=== PATIENT | female | born 1990 | race Caucasian/White ===

== ENCOUNTER 2016-07-09 03:23 | Inpatient (IN) | payer OTHER ==
--- NOTE | ~2016-07-09 | HP ---
Unit #: [id number] #: [id number] Patient: TASHA DOE [id number] [place] [address] [id number] I MR#: [id number] NAME: TASHA DOE. ROOM: P208 Age: 26 Sex: F Admission Date: 07/09/2016 : 1990 Attending Physician: Oli Castro M.D. Admitting Physician: Oli Castro M.D. Primary Care Physician: Estela Kapoor HISTORY AND PHYSICAL HISTORY OF PRESENT ILLNESS Tasha is a 26-year-old female admitted on 07/09/[address] [place] [address] for detox from heroin, Xanax and alcohol. She also reports suicidal ideation. During the exam she was unable to answer questions appropriately. Therefore, all information is taken from her records. PAST MEDICAL HISTORY 1. Asthma. 2. Hepatitis C. 3. History of withdrawal seizures. PAST SURGICAL HISTORY 1. Cholecystectomy. 2. section. ALLERGIES Penicillin and meloxicam. SOCIAL HISTORY Smokes 1 pack of cigarettes daily. Daily alcohol use and daily use of heroin, Xanax and amphetamines. She is currently and homeless. FAMILY HISTORY Noncontributory. REVIEW OF SYSTEMS CONSTITUTIONAL: No fever or chills. HEENT: Denies any sore throat, ear pain or runny nose. CARDIOVASCULAR: Denies chest pain, irregular heart rhythm or palpitations. CHEST: Denies shortness of breath or cough. No hemoptysis. GASTROINTESTINAL: Denies nausea, vomiting, diarrhea or chronic constipation. ENDOCRINE: Denies history of increased thirst or urination. No recent significant weight loss or gain. GENITOURINARY: Denies dysuria, frequency, or hematuria. SKIN: Denies any rashes. HEMATOLOGIC: Denies history of increased bleeding or bruising. MUSCULOSKELETAL: Denies any hot, swollen joints. No generalized muscle pain. NEUROLOGIC: Denies problems with vision or speech. No frequent, severe headaches. No numbness, tingling or weakness in any extremities. Denies loss of bladder or bowel control. Unit #: [id number] #: [id number] Patient: TASHA DOE CURRENT MEDICATIONS None. PHYSICAL EXAMINATION GENERAL: Alert, oriented, in no acute distress. VITAL SIGNS: Blood pressure 140/90, heart rate 92, temperature 97.8. HEIGHT: 5 feet 1. WEIGHT: 151 pounds. SKIN: Warm and dry without rash or lesion. HEENT: Normocephalic. TMs not viewed. Oral and nasal passages clear. Conjunctivae clear. PERRLA. EOMs intact. NECK: Supple without lymphadenopathy or thyromegaly. HEART: Regular rate and rhythm without murmur. LUNGS: Clear. ABDOMEN: Soft, nontender, without masses or hepatosplenomegaly. : Not done. EXTREMITIES: No evidence of cyanosis, clubbing or edema. Moves all without focal deficit. NEUROLOGICAL: Grossly within normal limits. Cranial Nerves: II: Visual miller are intact. III, IV AND : Extraocular movements are intact. Pupils are equal, round and reactive to light. V: Facial sensation is grossly normal. VII: Facial movements and expression are normal. VIII: Auditory acuity grossly intact. IX, X: Uvula is midline. Phonation is normal. XI: Patient shrugs shoulders and turns head normally. XII: Tongue protrudes in the midline. Sensory and Motor Function: Sensory and motor sensation is grossly normal. Motor: moves all extremities well. Coordination: Gait is normal. Deep Tendon Reflexes: Intact. IMPRESSION 1. Psychiatric admission. 2. Asthma. 3. Hepatitis C. 4. Withdrawal seizures. RECOMMENDATIONS PSYCHIATRIC: Per psychiatrist. MEDICAL: No contraindications to participate in facility's activities. MEDICAL PROGNOSIS Good. MEDICAL CONDITION Stable. Dictated by... Mel Santos/kasey TD: 07/09/2016 19:14 JOB #: [id number] Unit #: [id number] #: [id number] Patient: TASHA DOE HISTORY AND PHYSICAL X KATHY ALEX APRN HISTORY AND PHYSICAL
--- NOTE | ~2016-07-09 | PA ---
Unit #: [id number] #: [id number] Patient: PRINCE DOE [id number] [place] [address] [id number] I MR#: [id number] NAME: PRINCE DOE. ROOM: P208 Age: 26 Sex: F Admission Date: 07/09/2016 : 1990 Date of Assessment: 07/09/2016 Attending Physician: Oli Castro M.D. Admitting Physician: Oli Castro M.D. Primary Care Physician: Estela Kapoor PSYCHIATRIC ASSESSMENT IDENTIFYING INFORMATION The patient is a 26-year-old white female admitted to the [address] [place] [address] with suicidal ideation with plan to overdose on heroin. INFORMANT(S) Chart, patient could not be aroused for interview. CHIEF COMPLAINT None given. HISTORY OF PRESENT ILLNESS The patient is a 26-year-old white female last admitted to this facility in March 2016. She is readmitted reporting recurrent abuse of heroin, Xanax and alcohol. The patient had reported suicidal ideation with plan to overdose on heroin. She had also reported that she is drinking 6 cans of malt liquor on a daily basis. She is currently homeless and has lost custody of her children. For a more complete history of present, please refer to previous dictated notes. PAST PSYCHIATRIC HISTORY Reviewed, no changes. FAMILY HISTORY/SOCIAL HISTORY Reviewed, no changes. MEDICAL HISTORY Reviewed, no changes. MEDICATION HISTORY None. ALLERGIES Penicillin, meloxicam. MENTAL STATUS EXAM At this time, reveals the patient to be a soundly sleeping female. Multiple attempts to arouse her are unsuccessful. ASSETS AND LIABILITIES Patient's assets to be assessed. Liabilities, lack of resources, homelessness, lack of investment in treatment. ADMITTING DIAGNOSES Unit #: [id number] #: [id number] Patient: PRINCE DOE 1. Alcohol use disorder. 2. Sedative/hypnotic use disorder. 3. Opioid use disorder. 4. Dysthymic disorder. 5. Hepatitis C. PSYCHIATRIC PLAN/TREATMENT GOALS The patient remains hospitalized for safety and stabilization. Routine detoxification protocol to cover alcohol, opioids and benzodiazepines have been initiated. Suicide precautions are in place. The patient will participate in appropriate arriaza and milieu activities. ESTIMATED LENGTH OF STAY Three to five days with followup to take place through the auspices of community mental health resources. The patient's previous stay at the hospital was significant for her lack of investment in maintenance of sobriety. Dictated by... Oli Castro M.D. VALENTIN/kasey TD: 07/09/2016 12:13 JOB #: [id number] PSYCHIATRIC ASSESSMENT X Oli Castro MD X PSYCHIATRIC ASSESSMENT
--- NOTE | ~2016-07-09 | PN ---
Unit #: [id number] #: [id number] Patient: PRINCE DOE [id number] [facility] [address] [place] [address] [id number] Anastasiia MR#: [id number] NAME: PRINCE DOE ROOM: P208 Age: 26 Sex: F Admission Date: 07/09/2016 : 1990 Attending Physician: Oli Castro M.D. Admitting Physician: Oli Castro M.D. Primary Care Physician: Estela FRANCO PROGRESS NOTES DATE 07/10/2016 DISCUSSION The patient continues to exhibit significant discomfort related to opioid withdrawal. I have spoken to the patient regarding availing herself of p.r.n. medications for her symptoms of withdrawal. She is [facility]. Dictated by... Oli Castro M.D. CB/farnaz TD: 07/10/2016 15:10 JOB #: [id number] [facility] PROGRESS NOTES X Oli Castro MD PROGRESS NOTE
--- NOTE | ~2016-07-09 | DS ---
Unit #: [id number] #: [id number] Patient: PRINCE DOE [id number] [place] [address] [id number] I MR#: [id number] NAME: PRINCE DOE. ROOM: P208 Age: 26 Sex: F Admission Date: 07/09/2016 : 1990 Discharge Date: 07/11/2016 Attending Physician: Oli Castro M.D. Primary Care Physician: Estela Kapoor DISCHARGE SUMMARY REASON FOR ADMISSION The patient is a 26-year-old single white female, admitted to the [address] [place] [address] unit with a history of abuse of opioids and sedative hypnotics as well as alcohol. HOSPITAL COURSE The patient was admitted to the [address] [place] [address] unit and placed on routine detoxification protocol to cover all substances of abuse including alcohol, opioids, and Xanax. The patient remained seclusive to room with little if any participation within the therapeutic milieu. She did initially request referral to [facility], but on 07/11/2016, requested discharge. It was suspicion of this physician that the patient and her boyfriend who was also in the hospital were planning to get together following discharge to continue using drugs and the patient was gently confronted regarding this following discharge. FINAL DIAGNOSES Alcohol use disorder, sedative hypnotic use disorder, opioid use disorder, hepatitis C, antisocial personality disorder. DISPOSITION ON DISCHARGE The patient is discharged on no psychotropic or other medications. Given the circumstances of discharge, no psychiatric followup is arranged. PROGNOSIS The patient's prognosis is thus considered guarded. Dictated by... Oli Castro M.D. CB/valentin TD: 07/12/2016 01:41 JOB #: [id number] Unit #: [id number] #: [id number] Patient: PRINCE DOE DISCHARGE SUMMARY X Oli Castro MD X DISCHARGE SUMMARY
[~2016-07-09 03:23] MED LIST: KEFLEX500 MG PO; NO MEDICATIONS; PERMETHRIN60 GM TP
[2016-07-10 11:35] LABS: URINE APPEARANCE CLEAR; URINE BILIRUBIN NEG (NEG); URINE BLOOD TRACE (NEG); URINE COLOR YELLOW; URINE GLUCOSE NEG (NEG); URINE KETONE NEG (NEG); URINE LEUKOCYTE ESTERASE NEG (NEG); URINE NITRATE NEG (NEG); URINE PH 7.5 (5-8); URINE PROTEIN NEG (NEG); URINE SPECIFIC GRAVITY 1.008 (1.003-1.035); URINE UROBILINOGEN 0.2 MG/DL (NEG)
[2016-07-10 11:42] LABS: URBCS1 AUWI 0-2 /[HPF] (0-2); URINE BACTERIA AUWI NEG (NEGATIVE); URINE SQUAMOUS EPITHELIAL CELL NONE SEEN /[HPF]; UWBCS1 AUWI 0-2 (0-5)
[2016-07-10 11:54] LABS: AMPHETAMINE NEG (NEG); BARBITURATES NEG (NEG); BENZODIAZEPINES NEG (NEG); COCAINE NEG (NEG); MARIJUANA NEG (NEG); OPIATES NEG (NEG); TRICYCLIC ANTIDEPRESSANTS NEG (NEG); U METHADONE NEG (NEG)
== END 2016-07-11 16:13 | DRG 897 ==
LOC: P2S 03:23 → POF 07-11 13:58 → P2S 07-11 14:05
PROVIDERS: Specialist
DX: F10.20 Alcohol dependence, uncomplicated (principal); F11.20 Opioid dependence, uncomplicated; F13.20 Sedative, hypnotic or anxiolytic dependence, uncomplicated; F34.1 Dysthymic disorder; Z88.0 Allergy status to penicillin; Z88.8 Allergy status to other drugs, medicaments and biological substances; Z59.0 Homelessness; F60.2 Antisocial personality disorder
CPT/HCPCS: 80307; 81003

== ENCOUNTER 2016-08-01 04:43 | Inpatient (IN) | payer OTHER ==
--- NOTE | ~2016-08-01 | PN ---
Unit #: [id number] #: [id number] Patient: PRINCE DOE [id number] [facility] [address] [place] [address] [id number] MR#: [id number] NAME: PRINCE DOE. ROOM: P212 Age: 26 Sex: F Admission Date: 08/01/2016 : 1990 Attending Physician: Oli Castro M.D. Admitting Physician: Oli Castro M.D. Primary Care Physician: Estela Kapoor [facility] PROGRESS NOTES Attending physician Dr. Oli Castro, Dr. Carmelo Benitez covering for. DATE OF PROGRESS NOTE 08/02/2016 SUBJECTIVE UPDATE This is a 26-year-old, white female who is in the hospital with polysubstance withdrawal and dependency issues as well as dysphoria. Patient is continuing to be isolative to her room, poorly (1) with staff and peers. Continues to be dismissive of efforts to help arrange with outpatient care in a very contrite and irritable manner. She continues to ask frequently for PRNs for detox symptoms. She is currently scoring around an 8 with a blood pressure of 138/86 with a pulse of 66 and respiratory rate of 16. Patient was poorly cooperative with me during the interview process beyond acknowledging her name and then immediately would (2) back over and ignoring the rest of the interview. MENTAL STATUS EXAMINATION This is a poorly groomed, disheveled, white female seen in her hospital bed. Poor cooperation and responsiveness. Speech was nonverbal. Mood was irritable and dismissive with a blunted affect. Thought process and content were unable to be fully evaluated. No reports of SI from staff. Memory was unable to be evaluated. She is alert and oriented to time and self at the very least. Association was not able to be evaluated. Cognitive functioning was unable to be evaluated. Insight and judgement seems to be poor. RECOMMENDATIONS Will continue patient admission for safety and stabilization for ongoing detox issues and mood problems. Will continue to encourage proper cooperation with both peers and staff as well as with groups and activities. Patient will be monitored closely with likely disposition soon if progress is continued. Dictated by... Carmelo Benitez M.D. Terese TD: 08/03/2016 12:56 Unit #: [id number] #: [id number] Patient: PRINCE DOE Enrique JOB #: [id number] [facility] PROGRESS NOTES Page 1 of 1 X Carmelo Benitez MD PROGRESS NOTE
--- NOTE | ~2016-08-01 | PA ---
Unit #: [id number] #: [id number] Patient: PRINCE DOE [id number] [facility] [address] [place] [address] [id number] I MR#: [id number] NAME: PRINCE DOE. ROOM: P212 Age: 26 Sex: F Admission Date: 08/01/2016 : 1990 Date of Assessment: 08/01/2016 Attending Physician: Oli Castro M.D. Admitting Physician: Oli Castro M.D. Primary Care Physician: Estela Kapoor PSYCHIATRIC ASSESSMENT IDENTIFYING INFORMATION The patient is a 26-year-old single white female admitted to the [address] [place] [address] with a history of polysubstance dependence and suicidal ideation. INFORMANT(S) Chart, patient could not be aroused for interview. CHIEF COMPLAINT None given HISTORY OF PRESENT ILLNESS The patient is a 26-year-old single white female admitted to the [address] [place] [address] after she had presented to this facility reporting positive suicidal ideation with a plan to overdose on heroin. The patient reports that she has abusing heroin, Xanax, meth and alcohol. The patient reports ____ stressors including loss of custody of her children. She is currently living with an uncle who she states is sober. She had previously been homeless. She was last hospitalized at this facility in March of 2016 but maintains sobriety for no significant period of time thereafter. For more complete history of present of illness please refer to previous dictated notes. PAST PSYCHIATRIC HISTORY Reviewed no changes. PAST MEDICAL HISTORY Reviewed no changes. MEDICATIONS None. ALLERGIES Penicillin, meloxicam. FAMILY HISTORY Reviewed no changes. SOCIAL HISTORY Reviewed no changes. MENTAL STATUS EXAMINATION At this time reveals the patient to be a soundly sleeping white female who cannot be aroused for interview in spite of multiple efforts to do so. Unit #: [id number] #: [id number] Patient: PRINCE DOE ASSETS AND LIABILITIES ASSETS: To be assessed. LIABILITIES: Lack of resources. DIAGNOSTIC IMPRESSION Alcohol use disorder, methamphetamine use disorder, opioid use disorder, sedative hypnotic use disorder, dysthymic disorder and desocial personality disorder, hepatitis C. TREATMENT PLAN The patient remains hospitalized for safety and stabilization. A routine detoxification protocol for opioids as well as sedative hypnotics and alcohol have been initiated. The patient is on suicide precautions. ESTIMATED LENGTH OF STAY Three to five days with followup to take place through the auspices of community mental health resources. Dictated by... Oli Castro M.D. CB/thierno TD: 08/01/2016 20:49 JOB #: [id number] PSYCHIATRIC ASSESSMENT Page 1 of 1 X Oli Castro MD X PSYCHIATRIC ASSESSMENT
--- NOTE | ~2016-08-01 | HP ---
Unit #: [id number] #: [id number] Patient: TASHA DOE [id number] [place] [address] [id number] I MR#: [id number] NAME: TASHA DOE ROOM: P212 Age: 26 Sex: F Admission Date: 08/01/2016 : 1990 Attending Physician: Oli Castro M.D. Admitting Physician: Oli Castro M.D. Primary Care Physician: Estela Kapoor HISTORY AND PHYSICAL HISTORY OF PRESENT ILLNESS Tasha is a 26 year old admitted to [address] [place] [address] because of her continued polysubstance abuse. The patient was seen and H and P dated 07/09/2016 was reviewed. This is current. No changes. Please see H and P dated 07/09/2016. Dictated by... Nyla Galvan P.A.-C. for Camilo Torres/thierno TD: 08/02/2016 00:05 JOB #: [id number] HISTORY AND PHYSICAL Page 1 of 1 X Nyla Galvan HISTORY AND PHYSICAL
--- NOTE | ~2016-08-01 | DS ---
Unit #: [id number] #: [id number] Patient: PRINCE DOE [id number] [place] [address] [id number] I MR#: [id number] NAME: PRINCE DOE. ROOM: P212 Age: 26 Sex: F Admission Date: 08/01/2016 : 1990 Discharge Date: 08/03/2016 Attending Physician: Oli Castro M.D. Primary Care Physician: Estela Kapoor DISCHARGE SUMMARY LOCATION [facility] [address], room number 212, bed number one. REASON FOR ADMISSION Polysubstance dependency and suicidal ideation. PERTINENT LABORATORY DATA Unfortunately, the patient refused to cooperate with blood work. However, they were able to get a urine tox on her that was positive for opiates. A urinalysis that showed 2+ leukocyte esterase, 2+ urobilinogen, 3+ blood, 5 to 10 WBCs. No leukocytes. No nitrites. No other tests were completed because of the patient's lack of cooperation. HOSPITAL COURSE The patient was admitted for safety stabilization for primarily detox issues with secondary mood problems. The patient was less than cooperative with ambulation on the unit as well as socialization with groups and activities. The patient was fairly isolated to herself. Many times when staff and physicians would try to see the patient, she would simply either ignore them or asked to be left alone. The patient was apparently verbally abusive toward [facility] when they tried to intervene for assistance for aftercare. Over the course of hospitalization, the patient asked for medications frequently. There was some concern for malingering but, regardless on the , the patient reported feeling better, denied any SI or HI and was asking for discharge. She was aware of resources available to her and they will be provided by [facility] should she chose to follow up with them. Other than that, she requested no additional assistance. The patient was no longer having any suicidal ideation and most likely had not since admission. Detox symptoms were improved. It was felt the patient was appropriate for discharge. DISCHARGE DIAGNOSES 1. Alcohol dependency. 2. Opiate dependency. 3. Stimulant dependency. 4. Sedative hypnotic dependency. 5. Likely substance induced mood disorder. DISCHARGE INSTRUCTIONS Follow up with [facility] to be provided by [facility]. DISCHARGE MEDICATIONS Unit #: [id number] #: [id number] Patient: PRINCE DOE None. CONDITION AT DISCHARGE Improved. PROGNOSIS Limited, guarded, given the patient's unclear motivations. DIET Regular. ACTIVITY As tolerated. Sobriety encouraged. Dictated by... Camilo Cr TD: 08/03/2016 08:59 JOB #: [id number] DISCHARGE SUMMARY Page 1 of 1 X Carmelo Benitez MD X DISCHARGE SUMMARY
[2016-08-01 09:47] LABS: URINE APPEARANCE CLOUDY; URINE BILIRUBIN NEG (NEG); URINE BLOOD 3+ (NEG); URINE COLOR YELLOW; URINE GLUCOSE NEG (NEG); URINE KETONE NEG (NEG); URINE LEUKOCYTE ESTERASE 2+ (NEG); URINE NITRATE NEG (NEG); URINE PROTEIN NEG (NEG); URINE SPECIFIC GRAVITY 1.011 (1.003-1.035); URINE UROBILINOGEN 0.2 MG/DL (NEG)
[2016-08-01 09:53] LABS: URINE BACTERIA AUWI 1+ (NEGATIVE); URINE SQUAMOUS EPITHELIAL CELL OCC /[HPF]
[2016-08-01 10:23] LABS: AMPHETAMINE NEG (NEG); BARBITURATES NEG (NEG); BENZODIAZEPINES NEG (NEG); COCAINE NEG (NEG); MARIJUANA NEG (NEG); OPIATES POS (NEG); TRICYCLIC ANTIDEPRESSANTS NEG (NEG); U METHADONE NEG (NEG)
== END 2016-08-03 10:25 | disposition home or self-care (01) | DRG 897 ==
LOC: P2S 04:43
PROVIDERS: Specialist
PROC: HZ2ZZZZ Detoxification Services for Substance Abuse Treatment (ICD-10-PCS; principal; 2016-08-01)
DX: F10.20 Alcohol dependence, uncomplicated (principal); F11.20 Opioid dependence, uncomplicated; F13.20 Sedative, hypnotic or anxiolytic dependence, uncomplicated; F15.20 Other stimulant dependence, uncomplicated; F19.24 Other psychoactive substance dependence with psychoactive substance-induced mood disorder
CPT/HCPCS: 80307; 81003

== ENCOUNTER 2016-09-15 21:32 | Inpatient (IN) | payer OTHER ==
--- NOTE | ~2016-09-15 | PA ---
Unit #: [id number] #: [id number] Patient: PRINCE DOE [id number] [place] [address] [id number] I MR#: [id number] NAME: PRINCE DOE. ROOM: P180 Age: 26 Sex: F Admission Date: 09/15/2016 : 1990 Date of Assessment: 09/16/2016 Attending Physician: Oli Castro M.D. Admitting Physician: Oli Castro M.D. Primary Care Physician: Estela Kapoor PSYCHIATRIC ASSESSMENT IDENTIFYING INFORMATION The patient is a 26-year-old white female admitted with suicidal ideation and recurrent abuse of benzodiazepines, alcohol and heroin. INFORMANT(S) Chart, patient could not be aroused for interview. CHIEF COMPLAINT None given. HISTORY OF PRESENT ILLNESS The patient is a 26-year-old white female last discharged from this facility in early July of this year. She has a history of polysubstance dependence as well as hepatitis C. She reports a history of 6 to 7 previous suicide attempts by means of overdose and was reporting positive suicidal ideation when admitted yesterday. The patient states that she has been using intravenous heroin as well as alcohol and illicitly obtained benzodiazepines. When seen today, the patient is sleeping soundly and multiple attempts to arouse her are unsuccessful. For a more complete history of present illness, please refer to previous dictated notes. PAST PSYCHIATRIC HISTORY Reviewed, no changes. FAMILY HISTORY Reviewed, no changes. SOCIAL HISTORY Reviewed, no changes. MEDICAL HISTORY Reviewed, no changes. MEDICATION HISTORY Albuterol. ALLERGIES Penicillin, meloxicam. MENTAL STATUS EXAM At this time, reveals the patient to be a soundly sleeping white female appearing her stated age. She is in no apparent physical distress at time of the examination but cannot be aroused for interview in spite of Unit #: [id number] #: [id number] Patient: PRINCE DOE multiple attempts on the part of this physician to do so. ASSETS AND LIABILITIES Patient's assets to be assessed. Liabilities, poor compliance with treatment, ongoing substance use. ADMITTING DIAGNOSES 1. Opioid use disorder. 2. Alcohol use disorder. 3. Sedative/hypnotic use disorder. 4. Dysthymic disorder. 5. Hepatitis C. PSYCHIATRIC PLAN/TREATMENT GOALS The patient remains hospitalized for safety and stabilization. Routine detoxification protocol to cover sedative/hypnotics, alcohol as well as opioids has been initiated. The patient will participate in appropriate arriaza and milieu activities. ESTIMATED LENGTH OF STAY Five to seven days. Dictated by... Oli Castro M.D. CB/kasey TD: 09/16/2016 16:12 JOB #: [id number] PSYCHIATRIC ASSESSMENT Page 1 of 1 X Oli Castro MD X PSYCHIATRIC ASSESSMENT
--- NOTE | ~2016-09-15 | PN ---
Unit #: [id number] #: [id number] Patient: PRINCE DOE [id number] [facility] [address] [place] [address] [id number] I MR#: [id number] NAME: PRINCE DOE ROOM: P180 Age: 26 Sex: F Admission Date: 09/15/2016 : 1990 Attending Physician: Oli Castro M.D. Admitting Physician: Oli Castro M.D. Primary Care Physician: Estela FRANCO PROGRESS NOTES DATE 09/17/2016 DISCUSSION The patient states that she slept somewhat better with initiation of Melatonin last evening. She continues to complain of significant symptoms of opioid withdrawal but denies suicidal ideation. She was requesting residential chemical dependence treatment following discharge, and I will ask her high school social science teacher to see her regarding this. Dictated by... Oli Castro M.D. CB/tanya TD: 09/17/2016 12:22 JOB #: [id number] [facility] PROGRESS NOTES Page 1 of 1 X Oli Castro MD PROGRESS NOTE
--- NOTE | ~2016-09-15 | CO ---
Unit #: [id number] #: [id number] Patient: TASHA DOE [id number] [place] [address] [id number] I MR#: [id number] NAME: TASHA DOE ROOM: P180 Age: 26 Sex: F Admission Date: 09/15/2016 : 1990 Attending Physician: Oli Castro M.D. Primary Care Physician: Estela Kapoor Requesting Physician: Oli Castro M.D. Consultation Date: 09/17/2016 CONSULTATION REPORT HISTORY OF PRESENT ILLNESS Tasha had an abnormal UA on 09/16/2016 that showed one plus leucocytes, five to ten white blood cells and one plus bacteria. During evaluation Tasha was extremely agitated and refusing to answer any questions about her house. She reports that she does state that she is not having any problems and even if she did she wouldn't care and would not want it treated. PHYSICAL EXAM Actually refused a physical exam. ASSESSMENT AND PLAN Abnormal UA. It is likely that this abnormal UA (1) due to external bacterial that contaminated the urine sample. Tasha is extremely agitated and unwilling to be cooperative. At this time she does not appear to be in any distress and does not appear to be ill. She is denying any complaints so at this time we will just repeat a UA please notify if abnormal. Dictated by... Therese Fernández A.P.R.N. for Megan TD: 09/18/2016 23:53 JOB #: [id number] CONSULTATION REPORT Page 1 of 1 X THERESE ALEX APRN CONSULTATION REPORT
--- NOTE | ~2016-09-15 | HP ---
Unit #: [id number] #: [id number] Patient: PRINCE DOE [id number] [facility] [address] [place] [address] [id number] MR#: [id number] NAME: PRINCE DOE. ROOM: P180 Age: 26 Sex: F Admission Date: 09/15/2016 : 1990 Attending Physician: Oli Castro M.D. Admitting Physician: Oli Castro M.D. Primary Care Physician: Estela Kapoor HISTORY AND PHYSICAL HISTORY OF PRESENT ILLNESS The patient is a 26-year-old female who has been admitted to [facility] for her continued polysubstance abuse. She has had multiple admissions to this facility for the same. She endorses heroin use and drinking 6 to 8 Castellanos daily. She also endorses using benzos. PAST MEDICAL HISTORY 1. Asthma. 2. Hepatitis C. 3. History of withdrawal seizures. PAST SURGICAL HISTORY 1. Cholecystectomy. 2. . ALLERGIES Penicillin and meloxicam. HOME MEDICATIONS Albuterol inhaler 2 puffs inhalation q. 4 hours. FAMILY HISTORY Medically noncontributory. SOCIAL HISTORY The patient endorses tobaccoism, heroin, Xanax, and amphetamines. REVIEW OF SYSTEMS CONSTITUTIONAL: Denies fever or chills. HEENT: Denies sore throat, ear pain, or runny nose. CARDIOVASCULAR: Denies chest pain, irregular heart rhythm, or palpitations. CHEST: Denies shortness of breath or cough. No hemoptysis. GI Endorses nausea or vomiting. Denies diarrhea or chronic constipation. ENDOCRINE: Denies increased thirst or urination. Denies recent weight loss or weight gain. : Denies dysuria, frequency, or hematuria. SKIN: Denies any rashes. HEMATOLOGIC: Denies history of increased bleeding or bruising. MUSCULOSKELETAL: Denies any hot, swollen joints. No generalized pain. NEUROLOGIC: The patient denies problem with speech, vision, numbness, tingling. Denies loss of bowel or bladder control. Unit #: [id number] #: [id number] Patient: PRINCE DOE PHYSICAL EXAMINATION GENERAL: The patient is arousable, in no acute distress. VITAL SIGNS: Temperature 98.1, heart rate 77, respirations 18, blood pressure 112/73. She is 135 pounds. She is 5 feet 1 inches. HEENT: Atraumatic, normocephalic. Pupils are equal, round, and reactive to light. Extraocular movements are intact. No drainage from ears or nose. NECK: Supple. Trachea is midline. HEART: Regular rate and rhythm. LUNGS: Clear. ABDOMEN: Soft, nontender, nondistended. : Not done. SKIN: Warm, dry. No unusual rashes or lesions. EXTREMITIES: No clubbing, edema, or cyanosis. NEUROLOGIC: Cranial nerves II through XII are intact. No focal deficits. Sensory and motor function: Grossly normal in lower extremities: Coordination: Normal. Gait: Normal. Deep tendon reflexes intact. IMPRESSION 1. Psychiatric admission. 2. Asthma. RECOMMENDATIONS PSYCHIATRIC: Per psychiatry. MEDICAL: Asthma. We will continue the patient's albuterol inhaler. I see no contraindication to participating in this facility activities. MEDICAL PROGNOSIS Fair. MEDICAL CONDITION Stable. Dictated by... Deborah Arredondo A.P.R.N. for Sathish Alvarado M.D. AM/tanya TD: 09/16/2016 10:21 JOB #: [id number] HISTORY AND PHYSICAL Page 1 of 1 X Deborah Arredondo [employer] X HISTORY AND PHYSICAL
--- NOTE | ~2016-09-15 | DS ---
Unit #: [id number] #: [id number] Patient: PRINCE DOE [id number] [facility] [address] [place] [address] [id number] MR#: [id number] NAME: PRINCE DOE. ROOM: [facility] Age: 26 Sex: F Admission Date: 09/15/2016 : 1990 Discharge Date: 09/18/2016 Attending Physician: Oli Castro M.D. Primary Care Physician: Estela Kapoor DISCHARGE SUMMARY REASON FOR ADMISSION The patient is a 18-year-old white female, admitted for opioid dependence. HOSPITAL COURSE The patient was admitted to the [address] [place] [address] unit and placed on suicide precautions. She was placed on a routine detoxification protocol to cover alcohol, benzodiazepines as well as heroin. The patient's detox was uneventful one. She demanded discharge on 09/17/2016 and admitted to staff that she "needed to shoot up," though she shared a story that her children were home alone. Accordingly, CPS was notified and it was learned that the patient has multiple arrests and warrants. At the time of her discharge, she will be remanded to skilled nursing. FINAL DIAGNOSES Opioid use disorder, alcohol use disorder, sedative-hypnotic use disorder, asthma. DISPOSITION ON DISCHARGE The patient is discharged on the following medications: Proventil HFA 2 puffs q.4 hours p.r.n. shortness of air. DISCHARGE INSTRUCTIONS No dietary or physical restrictions were placed upon the patient at the time of discharge. FOLLOWUP The patient will be remanded to skilled nursing and no followup is arranged. Dictated by... Oli Castro M.D. CB/valentin TD: 09/18/2016 14:46 JOB #: [id number] Unit #: [id number] #: [id number] Patient: PRINCE DOE DISCHARGE SUMMARY Page 1 of 1 X Oli Castro MD DISCHARGE SUMMARY
[2016-09-16 12:26] LABS: BASOPHIL% 0.8 % (0-2.5); EOSINOPHIL# 0.2 X10e3 (0-0.7); EOSINOPHIL% 3.6 % (0.0-7.0); HEMATOCRIT 38.8 % (35.0-45.0); HEMOGLOBIN 13.1 gm/dL (12.0-16.0); LYMPHOCYTE# 2.3 X10e3 (1.0-3.5); LYMPHOCYTE% 44.7 % (17.0-45.0); MEAN CELL VOLUME 88.1 FL (83-96); MEAN CORPUSCULAR HEMOGLOBIN 29.8 PG (28-34); MEAN CORPUSCULAR HGB CONC 33.8 g/dL (30-36); MEAN PLATELET VOLUME 8.3 FL (6.5-11.5); MONOCYTE# 0.4 X10e3 (0-1.0); MONOCYTE% 6.9 % (3.0-12.0); NEUTROPHIL# 2.3 X10e3 (1.5-7.1); PLATELET COUNT 226 X10e3 (140-420); RED BLOOD COUNT 4.41 X10e (3.90-5.30); RED CELL DISTRIBUTION WIDTH 13.2 % (11.0-15.5); WHITE BLOOD COUNT 5.2 X10e3 (4.0-10.5)
[2016-09-16 12:29] LABS: DIFF IND NO
[2016-09-16 12:37] LABS: ALBUMIN SERUM 3.4 g/dL (3.5-5.0); BILIRUBIN,TOTAL 0.3 mg/dL (0.2-2.0); BUN/CREATININE RATIO 17.5; CALCIUM SERUM 8.5 mg/dL (8.4-10.2); CREATININE SERUM 0.4 mg/dL (0.6-1.4); GLOM FILT RATE Estimated 141.8 mL/min (>60); POTASSIUM 4.2 mmol/L (3.5-5.1); PROTEIN TOTAL SERUM 5.9 g/dL (6.0-8.3)
[2016-09-16 12:38] LABS: URINE APPEARANCE CLOUDY; URINE BILIRUBIN NEG (NEG); URINE BLOOD NEG (NEG); URINE COLOR YELLOW; URINE GLUCOSE NEG (NEG); URINE KETONE NEG (NEG); URINE LEUKOCYTE ESTERASE 1+ (NEG); URINE NITRATE NEG (NEG); URINE PH 6.5 (5-8); URINE PROTEIN NEG (NEG); URINE SPECIFIC GRAVITY 1.018 (1.003-1.035)
[2016-09-16 12:43] LABS: U HYALINE CASTS AUWI 0-2 /[LPF]; URINE BACTERIA AUWI 1+ (NEGATIVE); URINE SQUAMOUS EPITHELIAL CELL MOD /[HPF]
[2016-09-16 12:52] LABS: URBCS1 AUWI 0-2 /[HPF] (0-2); URINE CRYSTALS CALCIUM OXALATE /[HPF]
[2016-09-16 13:01] LABS: AMPHETAMINE NEG (NEG); BARBITURATES NEG (NEG); BENZODIAZEPINES NEG (NEG); COCAINE NEG (NEG); MARIJUANA NEG (NEG); OPIATES POS (NEG); TRICYCLIC ANTIDEPRESSANTS NEG (NEG); U METHADONE NEG (NEG)
== END 2016-09-18 13:50 | DRG 897 ==
LOC: P1E 23:53
PROVIDERS: Specialist
PROC: HZ2ZZZZ Detoxification Services for Substance Abuse Treatment (ICD-10-PCS; principal; 2016-09-15)
DX: F11.20 Opioid dependence, uncomplicated (principal); F13.20 Sedative, hypnotic or anxiolytic dependence, uncomplicated; F10.20 Alcohol dependence, uncomplicated; F34.1 Dysthymic disorder; B19.20 Unspecified viral hepatitis C without hepatic coma; Z88.0 Allergy status to penicillin; Z88.1 Allergy status to other antibiotic agents; F17.210 Nicotine dependence, cigarettes, uncomplicated; J45.909 Unspecified asthma, uncomplicated
CPT/HCPCS: 80053; 80307; 81003; 84703; 85025; 86592